=== PATIENT | female | born 1995 | race Caucasian/White ===

== ENCOUNTER 2017-04-04 08:55 | Inpatient (IN) | payer OTHER ==
[~2017-04-04] VITALS: Ht 153.7 cm; Wt 68.5 kg
[~2017-04-04 08:55] MED LIST: DOCU-41 PO; FERR-83 PO; IBUP-1827 PO; OXYC1TAB24 PO
[2017-04-04] MEDS ORDERED: Penicillin G K 5,000,000 UNITS/100 ML D5W IV ONE ×2 (10:00)
[2017-04-04] MEDS ORDERED: Betameth Ace-Betam SodPhos 6 mg/mL 5 mL Inj IM PRN (10:05)
[2017-04-04] MEDS ORDERED: Magnesium Sulfate 4 Gm/100 mL Water Premix IV ONE (13:11)
[2017-04-04] MEDS ORDERED: Sodium Citrate-Citric Acid 15 mL Solution ONE (13:49)
[2017-04-04 13:57] LABS: Mean Corpuscular Hemoglobin 24.7 pg (27.0-35.0)
[2017-04-04] MEDS ORDERED: Lactated Ringer's 1,000 ML IV SCH ×2 (16:03→16:46)
[2017-04-04] MEDS ORDERED: Measles-Mumps-Rubella Vaccine 0.5 mL Inj SUBQ ONE (16:05)
[2017-04-04] MEDS ORDERED: Oxytocin 10 Unit/mL Inj IM PRN (16:05)
[2017-04-04] MEDS ORDERED: LANOlin HPA 7 Gm Ointment TOPICAL PRN (16:05)
[2017-04-04] MEDS ORDERED: Benzocaine (Dermoplast) 20% 60 Gm Spray TOPICAL PRN ×2 (16:05→16:50)
[2017-04-04] MEDS ORDERED: HYDROcodone-APAP 5-325 mg Tablet PO PRN (16:05)
[2017-04-04] MEDS ORDERED: TdaP Vaccine 0.5 mL Inj IM ONE (16:05)
[2017-04-04] MEDS ORDERED: Carboprost 250 mCg/mL Inj IM PRN (16:05)
[2017-04-04] MEDS ORDERED: Witch Hazel-Glycerin Pads TOPICAL PRN (16:05)
[2017-04-04] MEDS ORDERED: Methylergonovine 0.2 mg/mL Inj IM PRN (16:05)
--- NOTE | 2017-04-04 17:29 | HP ---
[address] [address] HISTORY AND PHYSICAL PATIENT: MARYANN NAVARRETE : 1995 MR#: [id number] ADMIT: 04/04/2017 JOB ID: [id number] REASON FOR ADMISSION: The patient is a 21-year-old, 2, para 1, at 33 weeks and 6 days with spontaneous rupture of membranes at 3 o'clock in the morning, estimated due date May 17, 2017. Presents with clear fluid discharge vaginally. She reports irregular contractions. The patient has a history of prior delivery and would like to have repeat delivery. The consent was signed before. She was initially scheduled for repeat for May 14, 2017. HISTORY: Otherwise unremarkable. History of bicornuate uterus. PAST SURGICAL HISTORY: One delivery. ALLERGIES: NKDA. SOCIAL HISTORY: Denies smoking, denies alcohol, denies illicit recreational drug use. FAMILY HISTORY: Noncontributory. LABS: Reviewed. She is blood group type O-positive, rubella immune, varicella immune, group B strep culture, no. PHYSICAL EXAMINATION: Vital signs: Blood pressure 123/72, pulse 90, temperature 36.7. General exam: Alert, awake, oriented x3. In moderate distress. HEENT: PERRLA. Chest clear bilaterally, good respiratory effort. Cardiovascular: Regular rate and rhythm. Abdomen is gravid, moderately tender with contractions. Extremities: No pitting edema. Assistant Designer exam: AmniSure testing is positive. Amniotic fluid is clear. The cervix is 4 cm dilated, 80% effaced, -2 station. On a monitor, heart rate tracing is reactive, category one. Baseline 130 beats per minute. The patient has contractions every 3-4 minutes increasing in intensity. ASSESSMENT AND PLAN: A 21-year-old, 2, para 1, at 34 weeks, due date May 17, 2017. Spontaneous rupture of membranes about 12 hours ago. Clear fluid. heart rate tracing is reactive, reassuring. The patient desires a repeat delivery. Betamethasone 12 mg IM one dose is being given. IV fluid started was lactated Ringer at 125 mL/h. Discussed possibility of starting magnesium sulfate. Labs were sent. Consent for repeat delivery in the chart. The patient's management was discussed with the patient. Will some time to give her a full dose of steroids, and the plan is to do possible repeat delivery in 24 hours.
[2017-04-04] MEDS ORDERED: Ascorbic Acid 500 mg Tablet PO SCH (17:30)
--- NOTE | 2017-04-04 17:56 | OP ---
[address] [address] OPERATIVE REPORT PATIENT: MARYANN NAVARRETE : 1995 MR#: [id number] ADMIT: 04/04/2017 JOB ID: [id number] DATE OF SURGERY: 04/04/2017 SURGEON: Bakari Mcneal MD PREOPERATIVE DIAGNOSIS(ES): A 21-year-old, 2, para 1, at 34 weeks gestation. Spontaneous rupture of membranes. labor. POSTOPERATIVE DIAGNOSIS(ES): A 21-year-old, 2, para 2. labor. Spontaneous vaginal delivery. Vaginal after . DELIVERY NOTE: The patient is a 21-year-old, 2, para 2 now, who came to Labor and Delivery at 9:30 a.m. April 04, 2017, complaining of spontaneous rupture of membranes at 3:00 in the morning. The amniotic fluid was clear. The pelvic examination showed that she is 4 cm dilated, 80% effaced, -2 station. Contractions were regular. The patient received corticosteroids. Penicillin was given for unknown group B strep status. The plan was to give her an epidural and she desired to have repeat delivery. The patient was checked at 1 p.m. when was 5 cm dilated, 90% effaced, -2 station. The anesthesiologist was called for an epidural, but meanwhile the patient progressed fast to full dilation at 2:00 p.m. and started pushing at around the same time. She underwent spontaneous vaginal delivery at 2:05 a.m., delivered a male was weight 2189 g and Apgars 8 at one minute and 9 at five minutes. Delayed cord clamping was done for 60 seconds. The pension manager was present at delivery. The amniotic fluid was clear. There was cord around the neck x1. The patient has not had any perineal lacerations. The placenta was delivered at 2:09 p.m. and was found to be intact with three-vessel cord and was sent to Pathology. Estimated blood loss was 300 mL. After delivery of the placenta, bimanual exam confirmed firm uterus. There was no need to give oxytocin. It was an uncomplicated vaginal after delivery.
--- NOTE | 2017-04-04 21:04 | PCM.DIMED ---
Discharge Instructions Date of Service Apr 04, 2017 Dates of Hospitalization Apr 04, 2017 at 09:31 Diet Discharge Diet: No restrictions Activity Discharge Activity: No restrictions Call your provider Call your provider for: Fever or Chills, Shortness of breath, Bleeding, Chest pain, Excessive diarrhea, Weakness (unilateral) Patient Instructions Follow-up with PCP in: 6 weeks Bakari Mcneal MD Apr 04, 2017 21:04
[2017-04-04] MEDS ORDERED: IBUP800T28 PO (21:06)
[2017-04-04] MEDS ORDERED: DOCU-41 PO (21:06)
[2017-04-04] MEDS ORDERED: OXYC1TAB24 PO (21:06)
[2017-04-04 21:31] VITALS: BP 118/81; PULSE 105; RESP 18
--- NOTE | 2017-04-04 21:34 | DIS ---
[address] [address] DISCHARGE SUMMARY PATIENT: MARYANN NAVARRETE : 1995 MR#: [id number] ADMIT: 04/04/2017 JOB ID: [id number] DIS: ADMITTING DIAGNOSIS: A 21-year-old, 2, para 1, at 34 weeks labor. Spontaneous rupture of membranes. DISCHARGE DIAGNOSIS: A 21-year-old, 2, para two. labor, spontaneous rupture of membranes. Spontaneous vaginal delivery at 34 weeks. Vaginal after . HOSPITAL COURSE: The patient is a 21-year-old, 2, para 2 now, who came to Labor and Delivery at 9:30 a.m. complaining of spontaneous rupture of membranes since 3:00 in the morning. Initially the plan was to proceed with repeat delivery but she quickly progressed in labor and underwent the fast delivery of healthy with Apgars 8 at one minute and 9 at five minutes. Weight 2189 g, male . Delivery took place at 2:05 p.m. There were no lacerations. Estimated blood loss was 200 mL. The patient was doing well . She received pain medications including Motrin and Percocet for breakthrough pain. She has not had excessive bleeding. Vitals were stable. She was afebrile. The fundus was firm. She was ambulating, tolerating regular food well. The that was born at 34 weeks required transfer to the tertiary care center. The patient was willing to follow her son and to be discharged on the same day. She was discharged on April 04, 2017, with all discharge criteria met. Discharge medications were provided including Motrin 800 mg p.o. t.i.d. p.r.n., Percocet 5/325 mg p.o. t.i.d. p.r.n., Colace 100 mg p.o. b.i.d. Followup visit in the clinic is scheduled in six weeks.
--- NOTE | 2017-04-09 14:53 | PATH ---
SURGICAL PATHOLOGY Attending Physician:Bakari Mcneal MD CASE STATUS: Signed Out PATIENT NAME: MARYANN NAVARRETE PID: [id number] : 1995 DATE COLLECTED:04/04/2017 23:04 SPECIMEN: Placenta CLINICAL HISTORY: LABOR AT 33.6 WEEKS 1). PLACENTA FINAL DIAGNOSIS: 1.PLACENTA WITH UMBILICAL CORD AND MEMBRANES: 1. PLACENTA: 355 GRAMS, WHICH IS APPROXIMATELY THE 40TH PERCENTILE FOR 33.6 WEEKS GESTATION. SINGLE HEMORRHAGIC RECENT INFARCT MEASURING 1.3 X 1.2 X 0.7 CM. NEGATIVE FOR SIGNIFICANT INFLAMMATION AND/OR VASCULAR LESIONS. 2. UMBILICAL CORD: 45.0 CM IN LENGTH WITH THREE NORMAL BLOOD VESSELS. CORD ATTACHED 1.4 CM FROM THE PLACENTAL EDGE. NEGATIVE FOR SIGNIFICANT INFLAMMATION. 3. MEMBRANES: RUPTURED AT THE FREE PLACENTAL EDGE. NEGATIVE FOR SIGNIFICANT INFLAMMATION. ICD10 O43.813 GROSS DESCRIPTION: The specimen is received in formalin, labeled with the patient requisition number, and consists of an intact placenta which includes the placental disc (355 g, 18.5 x 12.2 x 2.5 cm), membranes and umbilical cord (length-45.0 cm, diameter-1.2 x 1.0 cm). The membranes are ruptured at the free edge of the placenta and are semitranslucent. The umbilical cord is attached 1.4 cm from the edge of the placenta, is diffusely edematous, and contains 3 vessels. The surface is smooth and shiny with no evidence of meconium identified. The maternal surface is dark maroon with normal cotyledon formation. The placental body is spongy and contains an irregularly firm hemorrhagic area (1.3 x 1.2 x 0.7 cm) located 0.1 cm from the maternal surface. No nodules or masses are identified. Section code: (A) edge of placenta with membranes, umbilical cord; (B, C-D) placenta, 2 full-thickness sections; (E, F) remaining hemorrhagic area. 04/05/17 JM MICRO DESCRIPTION: See diagnosis. ICD-9 CODES: CPT CODES: 1: 35953 Electronically Signed Out Eric Hankins MD [facility] Pathology [facility] [place] [address] Technical component performed at [facility], [address], [address]
== END 2017-04-04 23:50 | disposition home or self-care (01) | DRG 775 ==
LOC: FBCO 08:55 → FBC 09:31
PROVIDERS: ADMIT Legal Medicine; ATTEND Legal Medicine
PROC: 10E0XZZ Delivery of Products of Conception, External Approach (ICD-10-PCS; principal; 2017-04-04)
DX: O42.013 Preterm premature rupture of membranes, onset of labor within 24 hours of rupture, third trimester (principal); O99.824 Streptococcus B carrier state complicating childbirth; O69.81X0 Labor and delivery complicated by cord around neck, without compression, not applicable or unspecified; O34.219 Maternal care for unspecified type scar from previous cesarean delivery; Z37.0 Single live birth; Z3A.33 33 weeks gestation of pregnancy